=== PATIENT | male | born 1985 | race Native Hawaiian/Other Pacific Islander ===

== ENCOUNTER 2017-02-06 02:57 | Emergency (ER) | payer OTHER ==
[2017-02-06 03:04] VITALS: BP 108/65; PULSE 69; RESP 18; TEMP 97.5; O2SAT 97
--- NOTE | 2017-02-06 03:51 | ED PDOC ---
HPI: Psych/Substance Abuse Time Seen by Provider: 02/06/17 03:03 Chief Complaint (Nursing): Alcohol Ingestion Chief Complaint (Provider): Alcohol Ingestion ED Caveat: Intoxicated History Per: EMS History/Exam Limitations: intoxication Onset/Duration Of Symptoms: Hrs Current Symptoms Are (Timing): Still Present Modifying Factor(s): Alcohol Severity: Mild Involuntary Hold By: None Additional Complaint(s): 31 y/o male pt presenting to the ED with alcohol intoxication. PT was brought in by EMS after being picked up sleeping in the doorway of his building. Pt was somnolent when picked up and due to intoxication, pt was unable to give past medical history. Past Medical History Reviewed: Historical Data, Nursing Documentation, Vital Signs Vital Signs: Last Vital Signs Temp 97.5 F L 02/06/17 03:02 Pulse 69 02/06/17 03:02 Resp 18 02/06/17 03:02 BP 108/65 02/06/17 03:02 Pulse Ox 97 02/06/17 03:02 - Medical History PMH: No Chronic Diseases - Surgical History Surgical History: No Surg Hx - Family History Family History: States: Unknown Family Hx - Allergies Allergies/Adverse Reactions: Allergies Allergy/AdvReac Type Severity Reaction Status Date / Time No Known Allergies Allergy Verified 02/06/17 03:03 Review of Systems Review Of Systems: ROS cannot be obtained secondary to pt's inabilty to answer questions. ((+)Alcohol Intoxication) Physical Exam - Reviewed Nursing Documentation Reviewed: Yes Vital Signs Reviewed: Yes - Physical Exam Appears: Positive for: Non-toxic, No Acute Distress Head Exam: Positive for: ATRAUMATIC Skin: Positive for: Normal Color, Warm, Dry Eye Exam: Positive for: Normal appearance, EOMI, PERRL Cardiovascular/Chest: Positive for: Regular Rate, Rhythm. Negative for: Murmur Respiratory: Positive for: Normal Breath Sounds. Negative for: Respiratory Distress Neurologic/Psych: Negative for: Alert, Oriented, Motor/Sensory Deficits (Not awake, only reacting to painful stimuli.) - ECG O2 Sat by Pulse Oximetry: 97 (RA) Pulse Ox Interpretation: Normal - Progress Re-evaluation Time: 06:00 Condition: Re-examined, Improved Medical Decision Making Medical Decision Making: Time: 312 Initial impression: Alcohol Intoxication --Accucheck --0: Observe to Clinical Sobriety Initial plan: Scribe Attestation: Documented by Amanda Garcia, acting as a scribe for Dora Gannon MD MD Scribe Attestation: All medical record entries made by the Scribe were at my direction and personally dictated by me. I have reviewed the chart and agree that the record accurately reflects my personal performance of the history, physical exam, medical decision making, and the department course for this patient. I have also personally directed, reviewed, and agree with the discharge instructions and disposition. Disposition - Clinical Impression Clinical Impression: Alcohol abuse with uncomplicated intoxication - Patient ED Disposition Is Patient to be Admitted: No Doctor Will See Patient In The: Office Counseled Patient/Family Regarding: Studies Performed, Diagnosis, Need For Followup - Disposition Referrals: [facility] [Outside] Disposition: Routine/Home Disposition Time: 06:24 Condition: GOOD Instructions: Alcohol Intoxication (ED)
== END 2017-02-06 06:40 | disposition home or self-care (01) ==
LOC: H.ER 02:57
DX: F10.120 Alcohol abuse with intoxication, uncomplicated (principal)